=== PATIENT | female | born 1995 | race Caucasian/White ===

== ENCOUNTER 2020-06-27 04:52 | Emergency (ER) | payer OTHER, SELFPAY ==
[~2020-06-27] VITALS: Ht 165.1 cm; Wt 61.2 kg
[2020-06-27 04:55] VITALS: Ht 165.1 cm; Wt 61.2 kg
[2020-06-27 05:53] VITALS: BP 119/77
== END 2020-06-27 05:54 | disposition home or self-care (01) ==
LOC: ED 04:52
DX: L50.9 Urticaria, unspecified (principal)
CPT/HCPCS: J0171; J1200

== ENCOUNTER 2020-06-27 23:06 | Emergency (ER) | payer OTHER ==
[~2020-06-27] VITALS: Ht 165.1 cm; Wt 62.1 kg
[2020-06-27 23:11] VITALS: Ht 165.1 cm; Wt 62.1 kg
[2020-06-28 00:53] VITALS: BP 116/72
== END 2020-06-28 00:53 | disposition home or self-care (01) ==
LOC: ED 23:06
DX: U07.1 COVID-19 (principal); L50.9 Urticaria, unspecified; R50.9 Fever, unspecified; J12.89 Other viral pneumonia